=== PATIENT | female | born 1970 | race Hispanic/Latino ===

== ENCOUNTER 2020-12-05 15:25 | Emergency (ER) | payer SELFPAY ==
[~2020-12-05] VITALS: Ht 157.5 cm; Wt 59.0 kg
[2020-12-05 15:28] VITALS: BP 126/93
[2020-12-05 17:38] LABS: BASOPHILS % (AUTO) 0.1 % (0.0-5.0); EOSINOPHILS % (AUTO) 0.7 % (0.0-8.0); HEMATOCRIT 39.7 % (36-48); LYMPHOCYTES % (AUTO) 22.7 % (21.0-51.0); MEAN CORPUSCULAR HEMOGLOBIN 29.2 pg (27.0-33.0); MEAN CORPUSCULAR VOLUME 88.6 fL (79-99); MONOCYTES % (AUTO) 7.8 % (3.0-13.0); NEUTROPHILS % (AUTO) 68.5 % (40.0-77.0); PLATELET COUNT (AUTO) 271 K/uL (130-400); RED BLOOD CELL COUNT(AUTO) 4.48 MIL/uL (4.00-5.50); RED CELL DISTRIBUTION WIDTH 15.2 % (11.0-15.5); WHITE BLOOD COUNT (AUTO) 8.3 K/uL (4.8-10.8)
[2020-12-05 17:38] LABS: APPEARANCE,URINE Clear (CLEAR); BILIRUBIN,URINE Negative (NEGATIVE); COLOR,URINE Yellow (YELLOW); GLUCOSE, URINE (UA) Negative (NEGATIVE); KETONES,URINE Negative (NEGATIVE); LEUKOCYTE ESTERASE ,URINE Trace (NEGATIVE); NITRATE,URINE Negative (NEGATIVE); OCCULT BLOOD,URINE Trace (NEGATIVE); PROTEIN,URINE Negative (NEGATIVE); UROBILINOGEN,URINE 0.2 mg/dL (0.2-1.0)
[2020-12-05 17:47] LABS: BACTERIA,URINE Rare /HPF (None Seen); RBC,URINE 0-1 /HPF (0-1); SQUAMOUS EPITHELIAL CELL,UR Rare /HPF (0-2); TRANSITIONAL EPI CELLS,URINE Rare /HPF (None Seen)
[2020-12-05 17:52] LABS: CREATININE 0.8 mg/dL (0.5-1.5); POTASSIUM 3.6 mmol/L (3.5-5.1)
[2020-12-05 17:53] LABS: PROTHROMBIN TIME 10.9 SEC (9.6-11.6)
[2020-12-05 17:54] LABS: PARTIAL THROMBOPLASTIN TIME 28.2 SEC (26.3-35.5)
[2020-12-05 17:55] VITALS: BP 118/79
[2020-12-05 17:57] LABS: ALBUMIN 3.7 g/dL (3.5-5.0); BILIRUBIN,TOTAL 0.5 mg/dL (0.2-1.0)
[2020-12-05 17:58] LABS: B-TYPE NATRIURETIC PEPTIDE 25 pg/mL (0-100)
[2020-12-05] MEDS ORDERED: SUCR1TAB28 PO (18:10)
[2020-12-05] MEDS ORDERED: SUCRALFATE 1 GM TABLET PO SCH (18:30)
[2020-12-05 18:34] VITALS: BP 130/99
== END 2020-12-05 18:35 | disposition home or self-care (01) ==
LOC: EDH 15:25
DX: K29.70 Gastritis, unspecified, without bleeding (principal); R07.89 Other chest pain; Z79.899 Other long term (current) drug therapy
CPT/HCPCS: 36415; 71045; 80053; 81001; 82550; 83880; 84484; 85025; 85610; 85730; 93005

== ENCOUNTER 2021-01-08 10:45 | Emergency (ER) | payer SELFPAY ==
[~2021-01-08] VITALS: Ht 157.5 cm; Wt 54.4 kg
[~2021-01-08 10:45] MED LIST: SUCR1TAB28 PO
[2021-01-08 11:02] VITALS: BP 126/83
[2021-01-08 11:22] LABS: BASOPHILS % (AUTO) 0.1 % (0.0-5.0); CREATININE 0.8 mg/dL (0.5-1.5); EOSINOPHILS % (AUTO) 0.1 % (0.0-8.0); LYMPHOCYTES % (AUTO) 12.4 % (21.0-51.0); MEAN CORPUSCULAR VOLUME 91.1 fL (79-99); PLATELET COUNT (AUTO) 289 K/uL (130-400); POTASSIUM 3.3 mmol/L (3.5-5.1); RED BLOOD CELL COUNT(AUTO) 4.39 MIL/uL (4.00-5.50); WHITE BLOOD COUNT (AUTO) 11.2 K/uL (4.8-10.8)
[2021-01-08 11:27] LABS: ALBUMIN 3.8 g/dL (3.5-5.0); BILIRUBIN,TOTAL 0.5 mg/dL (0.2-1.0); TOTAL PROTEIN, SERUM 8.2 g/dL (6.0-8.3)
[2021-01-08 12:10] LABS: APPEARANCE,URINE Clear (CLEAR); BILIRUBIN,URINE Negative (NEGATIVE); COLOR,URINE Yellow (YELLOW); GLUCOSE, URINE (UA) Negative (NEGATIVE); KETONES,URINE Negative (NEGATIVE); LEUKOCYTE ESTERASE ,URINE Negative (NEGATIVE); NITRATE,URINE Negative (NEGATIVE); OCCULT BLOOD,URINE Trace (NEGATIVE); PH,URINE 6.5 (5.0-8.0); PROTEIN,URINE Negative (NEGATIVE); UROBILINOGEN,URINE 0.2 mg/dL (0.2-1.0)
[2021-01-08 12:19] LABS: BACTERIA,URINE Rare /HPF (None Seen); RBC,URINE 0-1 /HPF (0-1); SQUAMOUS EPITHELIAL CELL,UR Rare /HPF (0-2); WBC,URINE None Seen /HPF (0-1)
[2021-01-08] MEDS ORDERED: HYDROXYZINE 50MG VIAL 50 MG/ML VIAL IM SCH (13:30)
[2021-01-08 14:14] VITALS: BP 116/79
[2021-01-08] MEDS ORDERED: HYDR25CA PO (14:23)
== END 2021-01-08 16:24 | disposition home or self-care (01) ==
LOC: EDH 10:45
DX: F41.9 Anxiety disorder, unspecified (principal); R00.2 Palpitations; G47.00 Insomnia, unspecified; Z90.49 Acquired absence of other specified parts of digestive tract; Z79.899 Other long term (current) drug therapy
CPT/HCPCS: 36415; 71045; 80053; 81001; 84443 ×2; 85025; 93005; 96372; 99285; J3410

== ENCOUNTER 2023-12-31 17:33 | Emergency (ER) | payer SELFPAY ==
[~2023-12-31] VITALS: Ht 157.5 cm; Wt 54.0 kg
[~2023-12-31 17:33] MED LIST changes: +HYDR25CA PO
[2023-12-31 18:21] LABS: BASOPHILS # (AUTO) 0.03 K/uL (0.00-0.20); BASOPHILS % (AUTO) 0.5 % (0.0-5.0); EOSINOPHILS # (AUTO) 0.05 K/uL (0.00-0.70); EOSINOPHILS % (AUTO) 0.8 % (0.0-8.0); HEMATOCRIT 38.5 % (36-48); IMMATURE GRANULOCYTE ABSOLUTE 0.02 K/uL (0-1); LYMPHOCYTES # (AUTO) 1.6 K/uL (1.0-4.8); LYMPHOCYTES % (AUTO) 24.5 % (21.0-51.0); MEAN CORPUSCULAR HEMOGLOBIN 30.4 pg (27.0-33.0); MEAN CORPUSCULAR HGB CONC 32.7 g/dL (32.0-36.0); MEAN CORPUSCULAR VOLUME 92.8 fL (79-99); MONOCYTES # (AUTO) 0.5 K/uL (0.1-1.0); MONOCYTES % (AUTO) 8.1 % (3.0-13.0); NEUTROPHILS # (AUTO) 4.3 K/uL (1.8-7.7); NEUTROPHILS % (AUTO) 65.8 % (40.0-77.0); PLATELET COUNT (AUTO) 231 K/uL (130-400); RED BLOOD CELL COUNT(AUTO) 4.15 MIL/uL (4.00-5.50); RED CELL DISTRIBUTION WIDTH 13.2 % (11.0-15.5); WHITE BLOOD COUNT (AUTO) 6.5 K/uL (4.8-10.8)
[2023-12-31 18:33] VITALS: TEMP 98.2
[2023-12-31 18:35] LABS: CREATININE 0.9 mg/dL (0.5-1.0); POTASSIUM 4.1 mmol/L (3.5-5.1)
[2023-12-31] MEDS: 0.9%NACL 1000ML 1,000 ML IV ONE (18:39)
[2023-12-31] MEDS: FAMOTIDINE 20MG VIAL IV STA (18:39)
[2023-12-31 18:40] LABS: APPEARANCE,URINE CLEAR (CLEAR); BILIRUBIN,URINE NEGATIVE (NEGATIVE); COLOR,URINE COLORLESS (YELLOW); GLUCOSE, URINE (UA) NEGATIVE (NEGATIVE); KETONES,URINE NEGATIVE (NEGATIVE); LEUKOCYTE ESTERASE ,URINE NEGATIVE Leu/uL (NEGATIVE); NITRATE,URINE NEGATIVE (NEGATIVE); PH,URINE 6.5 (5.0-8.0); PROTEIN,URINE NEGATIVE (NEGATIVE); UROBILINOGEN,URINE 0.2 mg/dL (0.2-1.0)
[2023-12-31 18:41] LABS: ADD UA MICROSCOPIC YES
[2023-12-31 18:46] LABS: AMPHET/METH SCREEN,URINE NEGATIVE (NEGATIVE); BARBITURATE SCREEN, URINE NEGATIVE (NEGATIVE); BENZODIAZEPINES SCREEN,URINE NEGATIVE (NEGATIVE); CANNABINOID SCREEN,URINE NEGATIVE (NEGATIVE); COCAINE SCREEN,URINE NEGATIVE (NEGATIVE); OPIATE SCREEN,URINE NEGATIVE (NEGATIVE); PHENCYCLIDINE SCREEN,URINE NEGATIVE (NEGATIVE)
[2023-12-31 18:49] LABS: THYROID STIMULATING HORMONE 0.87 uIU/mL (0.36-3.74)
[2023-12-31 19:04] LABS: RBC,URINE 0-1 /HPF (0-1); WBC,URINE 0-1 /HPF (0-1)
[2023-12-31 19:49] VITALS: BP 129/80; PULSE 77; RESP 18; O2SAT 98
== END 2023-12-31 20:49 | disposition home or self-care (01) ==
LOC: EDH 17:33
DX: R00.2 Palpitations (principal); R03.0 Elevated blood-pressure reading, without diagnosis of hypertension; F41.9 Anxiety disorder, unspecified; Z79.899 Other long term (current) drug therapy; Z90.49 Acquired absence of other specified parts of digestive tract; Z90.710 Acquired absence of both cervix and uterus
CPT/HCPCS: 99285; 96374; 71045; 96361; 84443; 84484 ×2; 80048; 80305; 85025; 36415; 93005; 81001; J3490; J7030